=== PATIENT | female | born 1965 | race Caucasian/White ===

== ENCOUNTER 2024-08-27 11:17 | Day surgery (SDC) | payer OTHER, SELFPAY ==
[2024-08-27 11:34] VITALS: BP 140/84; PULSE 75; RESP 16; TEMP 36.1; O2SAT 98
--- NOTE | 2024-08-27 12:02 | P.HP_ITS ---
History of Present Illness History of Present Illness Chief complaint: Screening Colonoscopy Narrative: Screening colonoscopy [facility] Social History Smoking Status: Former smoker alcohol intake: current Meds Home Medications and Allergies Home Medications Medication Instructions Recorded Confirmed Type No Known Home Medications 05/18/24 05/18/24 History Allergies Allergy/AdvReac Type Severity Reaction Status Date / Time tetracycline AdvReac Verified 08/27/24 11:31 Exam Vital Signs (past 8 hours): - 08/27/24 11:34 Temperature 97.0 F L Pulse Rate 75 Respiratory Rate 16 Blood Pressure 140/84 Pulse Oximetry 98 Oxygen Delivery Method Room Air Oxygen Delivery Method Room Air Narrative Exam Narrative: Oropharynx free of lesions Chest clear to auscultation percussion Cardiac exam reveals no S3 or murmur Assessment & Plan Assessment & Plan narrative: Need for routine screening colonoscopy. Risks, benefits, alternatives have been explained. Time-Based Coding :: [TOTAL MINUTES] spent with patient and on the chart (including review of chart, obtaining history, exam, reviewing outside data, placing orders, documenting exam and treatment plan, and counseling patient) on [DATE].
--- NOTE | 2024-08-27 12:03 | PM.OP.COLON ---
Operative Date/Time/Diagnoses Date of procedure: 08/27/24 Pre-op diagnosis: See indication and findings Procedure & Clinicians Study performed: Colonoscopy Indications: Screening Surgeon: Madelyn Kerr Procedure Notes Procedure in detail: After informed consent was obtained the patient was placed in the left lateral decubitus position. The video colonoscope was introduced the rectum slowly advanced cecum. Preparation was good. On slow withdrawal mucosa was carefully examined. The scope was removed. The patient tolerated procedure well. Blood loss none Complications none Sedation mac Findings 1. Normal colonoscopy to cecum Patient should have follow-up colonoscopy in 10 years
[2024-08-27 12:30] VITALS: BP 125/80; PULSE 88; RESP 16; TEMP 36.4; O2SAT 94
[2024-08-27 12:35] VITALS: BP 122/85; PULSE 87; RESP 9; O2SAT 93
[2024-08-27 12:40] VITALS: BP 139/81; PULSE 86; RESP 17; O2SAT 95
[2024-08-27 12:44] VITALS: BP 141/71; PULSE 77; RESP 10; TEMP 36.6; O2SAT 93
== END 2024-08-27 13:10 | disposition home or self-care (01) ==
PROVIDERS: Referring Provider Internal Medicine Gastroenterology; Visit Provider Internal Medicine Gastroenterology
PROC: 0DJD8ZZ Inspection of Lower Intestinal Tract, Via Natural or Artificial Opening Endoscopic (ICD-10-PCS; CPT 45378; principal; 2024-08-27 12:30)
DX: Z12.11 Encounter for screening for malignant neoplasm of colon (principal)
CPT/HCPCS: 45378; J2704